=== PATIENT | male | born 1995 | race Caucasian/White ===

== ENCOUNTER 2023-05-09 12:39 | Day surgery (SDC) | payer OTHER ==
[~2023-05-09] VITALS: Ht 180.3 cm; Wt 81.6 kg
[~2023-05-09 12:39] MED LIST: OMEP1CAP73 PO; fentaNYL 100 MCG/2 ML INJECTION As Ordered ONE
[2023-05-09] MEDS: NS 1,000 ML IV ONE (13:21)
[2023-05-09] MEDS ORDERED: LIDOCAINE 2% 100MG/5ML SDV (FOR ANES.) As Ordered ONE (13:30)
[2023-05-09] MEDS ORDERED: propofoL 200 MG/20 ML VIAL As Ordered ONE (13:30)
[2023-05-09 14:29] VITALS: BP 120/73; TEMP 98.1; O2SAT 100
== END 2023-05-09 14:32 | disposition home or self-care (01) ==
LOC: M OPP 12:39
PROVIDERS: ATTEND Internal Medicine Gastroenterology
DX: K20.0 Eosinophilic esophagitis (principal); K22.89 Other specified disease of esophagus; K29.70 Gastritis, unspecified, without bleeding; Z79.899 Other long term (current) drug therapy
CPT/HCPCS: 43239; 88305; J3010

== ENCOUNTER → 2023-10-03 | Day surgery (SDC) | payer OTHER ==
[~2023-10-03] VITALS: Ht 182.9 cm; Wt 79.4 kg
[~2023-10-03] MED LIST changes: +BUDE2SUS3 PO; +LIDOCAINE 2% 100MG/5ML SDV (FOR ANES.) As Ordered ONE; +NS 1,000 ML IV ONE; +OMEP40CA4 PO; -fentaNYL 100 MCG/2 ML INJECTION As Ordered ONE; +propofoL 200 MG/20 ML VIAL As Ordered ONE
== END | disposition home or self-care (01) ==
LOC: M OPP 15:19
PROVIDERS: ATTEND Internal Medicine Gastroenterology
DX: K20.0 Eosinophilic esophagitis (principal); J45.909 Unspecified asthma, uncomplicated; F17.290 Nicotine dependence, other tobacco product, uncomplicated; Z79.51 Long term (current) use of inhaled steroids; Z79.899 Other long term (current) drug therapy